=== PATIENT | female | born 1995 | race Caucasian/White ===

== ENCOUNTER 2019-05-06 07:49 | Emergency (ER) | payer OTHER ==
[~2019-05-06] VITALS: Ht 152.4 cm; Wt 59.0 kg
[2019-05-06 07:53] VITALS: BP 125/68
[2019-05-06 08:36] VITALS: BP 125/68
== END 2019-05-06 08:34 | disposition home or self-care (01) ==
LOC: MED 07:49
DX: L03.213 Periorbital cellulitis (principal)
CPT/HCPCS: 99283

== ENCOUNTER 2021-01-03 23:28 | Emergency (ER) | payer OTHER ==
[~2021-01-03] VITALS: Ht 152.4 cm; Wt 59.9 kg
[2021-01-03 23:34] VITALS: BP 127/87
--- NOTE | 2021-01-03 23:34 | NUR ---
TO BED AMBULATORY
--- NOTE | 2021-01-03 23:50 | NUR ---
PATIENT BIB SELF FOR C/O LACERATION ON L POSTERIOR BIG TOE. PATIENT NOTED WITH LAC APPROXIMATELY 1CM IN LENGTH, EDGES APPROXIMATED, BLEEDING CONTROLLED. PER PATIENT SHE STEPPED ON A PIECE OF GLASS. MEDHX: HEARD OF HEARING ALLERGIES: JOYCELYN
--- NOTE | 2021-01-03 23:52 | NUR ---
Dr. Wagoner examining patient.
--- NOTE | 2021-01-04 01:23 | NUR ---
X-Ray at bedside.
--- NOTE | 2021-01-04 02:12 | NUR ---
Patient appears to be resting comfortably in bed. Vital Signs within normal limits. Respirations even and unlabored.
--- NOTE | 2021-01-04 03:46 | NUR ---
Patient has a 1 cm laceration to L BIG TOE. Dr. LUCAS applied sutures using sterile technique. Edges well approximated. Site cleansed with NS. No bleeding noted. Pt tolerated well.
[2021-01-04] MEDS ORDERED: BACITRACIN OINT 500 UNITS/GM PKT TP ONE ×2 (03:59→04:00)
[2021-01-04 04:15] VITALS: BP 133/75
--- NOTE | 2021-01-04 04:15 | NUR ---
Patient discharged with v/s stable. Written and verbal after care instructions given and explained. Patient verbalized understanding. Ambulatory with steady gait. All questions addressed prior to discharge. Advised to follow up with PMD.
== END 2021-01-04 04:15 | disposition home or self-care (01) ==
LOC: MED 23:28
DX: S91.111A Laceration without foreign body of right great toe without damage to nail, initial encounter (principal); H91.90 Unspecified hearing loss, unspecified ear; X58.XXXA Exposure to other specified factors, initial encounter; Y93.01 Activity, walking, marching and hiking; Y92.89 Other specified places as the place of occurrence of the external cause; Y99.8 Other external cause status
CPT/HCPCS: 12001; 73660; 90715; 99283

== ENCOUNTER 2022-11-26 11:18 | Emergency (ER) | payer OTHER ==
[~2022-11-26] VITALS: Ht 152.4 cm; Wt 61.7 kg
[2022-11-26 11:48] VITALS: BP 107/60
--- NOTE | 2022-11-26 11:49 | NUR ---
PT AMBULATED TO ER BED 9
[2022-11-26] MEDS ORDERED: ACET-10509 PO (12:57)
--- NOTE | 2022-11-26 13:21 | NUR ---
27 YO FEMALE JAMES PRESENTS TO THE ED WITH COMPLAINT OF OF FEELING ILL, GREEN MUCOUS RUNNING FROM HER NOSE, SORE THROAT AND COUGH, EYE INFECTION, AND SHORTNESS OF BREATH. PATIENT IS 27 WEEKS
--- NOTE | 2022-11-26 13:35 | NUR ---
JULIETA COLLECTED AND WALKED TO LAB
== END 2022-11-26 12:29 | disposition home or self-care (01) ==
LOC: MED 11:18
DX: O99.512 Diseases of the respiratory system complicating pregnancy, second trimester (principal); Z20.822 Contact with and (suspected) exposure to COVID-19; B34.9 Viral infection, unspecified; Z3A.24 24 weeks gestation of pregnancy
CPT/HCPCS: 81025; 99284